=== PATIENT | female | born 1950 | race Caucasian/White ===

== ENCOUNTER 2020-05-21 16:16 | Inpatient (IN) ==
--- NOTE | 2020-05-21 16:31 | Emergency Department Note ---
Fall HPI General Chief Complaint: Fall Stated Complaint: tripped in yard Time Seen by Provider: 05/21/20 16:26 Source: patient and RN notes reviewed Mode of arrival: wheelchair Limitations: no limitations History of Present Illness HPI Narrative: Narrative: This patient tripped and fell in yard and injured her right shoulder and left lateral foot. Happened a short while ago and denies any other injuries. Related Data Home Medications Medication Instructions Recorded Confirmed albuterol sulfate 2 puff INH Q6HP PRN 07/19/19 04/08/20 allopurinol 300 mg PO DAILY 07/19/19 04/08/20 calcium carbonate-vitamin D3 1 tab PO DAILY 07/19/19 04/08/20 cholecalciferol (vitamin D3) 5,000 unit PO DAILY 07/19/19 04/08/20 coenzyme Q10 300 mg PO DAILY 07/19/19 04/08/20 cyanocobalamin (vitamin B-12) 2,500 mcg PO DAILY 07/19/19 04/08/20 fluticasone propion-salmeterol 1 inh INHALATION BID 07/19/19 04/08/20 gabapentin 300 mg PO TID 07/19/19 04/08/20 magnesium oxide 400 mg PO DAILY@1800 07/19/19 04/08/20 metoprolol succinate 100 mg PO HS 07/19/19 04/08/20 niacin 500 mg PO DAILY@1800 07/19/19 04/08/20 onabotulinumtoxinA 300 unit IJ ONCE 07/19/19 04/08/20 potassium 99 mg PO DAILY@1800 07/19/19 04/08/20 xylitol 550 - 1,100 mg MM HS 07/19/19 04/08/20 nortriptyline 10 mg capsule 30 mg PO QHS cap 04/08/20 04/08/20 Previous Rx's Medication Instructions Recorded omeprazole 20 mg capsule,delayed 20 mg PO BID #180 cap 03/20/17 release simvastatin 40 mg tablet 40 mg PO QPM #90 tab 08/02/17 tiotropium bromide 18 mcg capsule 18 mcg INHALATION QDAY #90 puff 08/02/17 with inhalation device celecoxib 200 mg capsule 200 mg PO QDAY #90 cap 01/09/18 fenofibrate 160 mg tablet 160 mg PO QDAY #90 tab 01/09/18 docusate sodium 100 mg PO BID #60 cap 07/29/19 Allergies Allergy/AdvReac Type Severity Reaction Status Date / Time clarithromycin [From Biaxin] Allergy Severe Swelling Verified 02/28/20 11:32 of Lip/Tongue/Throat Penicillins Allergy Severe Swelling Verified 02/28/20 11:32 of Lip/Tongue/Throat Diclofenac Allergy Mild Swelling Verified 02/28/20 11:32 Cephalosporins AdvReac Mild Unknown Verified 02/28/20 11:32 codeine AdvReac Mild Chest Pain Verified 02/28/20 11:32 iodine AdvReac Mild Bradycardia Verified 02/28/20 11:32 topiramate AdvReac Mild Swelling Verified 02/28/20 11:32 tramadol AdvReac Mild Hallucinati Verified 02/28/20 11:32 ng hydrochlorothiazide AdvReac Unknown Unknown Verified 02/28/20 11:32 nitrofurantoin AdvReac Unknown Unknown Verified 02/28/20 11:32 [From Macrobid] prednisolone AdvReac Unknown Unknown Verified 02/28/20 11:32 Sulfa (Sulfonamide AdvReac Unknown Unknown Verified 02/28/20 11:32 Antibiotics) Review of Systems ROS ROS Narrative: Narrative: All systems ED: reviewed and negative except as stated. PFSH Narrative Patient History Narrative: Narrative: Medical/Surgical/Family History All Active Problems (Updated 05/21/20 @ 19:57 by Heron Wade MD) Anterior dislocation of right shoulder (Acute) Fracture of base of fifth metatarsal bone of left foot (Acute) Congestive heart failure (Acute) Acute exacerbation of chronic obstructive pulmonary disease (Acute) Diarrhea (Acute) Personal history of malignant melanoma of skin (Chronic) High cholesterol (Chronic) Other spondylosis with radiculopathy, lumbar region (Chronic) Degenerative disc disease, lumbar (Chronic) Facet arthropathy (Chronic) Radiculopathy, lumbosacral region (Chronic) Spondylosis without myelopathy or radiculopathy, lumbar region (Chronic) Spondylosis without myelopathy or radiculopathy, lumbosacral region (Chronic) Trochanteric bursitis, left hip (Chronic) Pyelonephritis (Acute) Migraine (Chronic) Strain of right little finger (Acute) Osteoarthritis (Chronic) Tendinitis (Acute) Lumbar disc disease with radiculopathy (Chronic) Hx of hysterectomy (Chronic) Urinary tract infection (Chronic 06/12/13) Renal calculi (Chronic 06/12/13) Microscopic hematuria (Chronic 06/12/13) Hypertension, essential (Chronic) Hyperlipidemia (Chronic) Fibromyalgia (Chronic) Fibrocystic disease of breast (Chronic) Hx of colonic polyps (Chronic) Asthma (Chronic) Medical History (Updated 05/21/20 @ 19:57 by Heron Wade MD) Asthma (Chronic) Degenerative disc disease, lumbar (Chronic) Diarrhea (Acute) Facet arthropathy (Chronic) Fibrocystic disease of breast (Chronic) Fibromyalgia (Chronic) High cholesterol (Chronic) Hx of colonic polyps (Chronic) 2004 hyperplastic Hyperlipidemia (Chronic) Hypertension, essential (Chronic) Microscopic hematuria (Chronic 06/12/13) Other spondylosis with radiculopathy, lumbar region (Chronic) Personal history of malignant melanoma of skin (Chronic) Radiculopathy, lumbosacral region (Chronic) Renal calculi (Chronic 06/12/13) Spondylosis without myelopathy or radiculopathy, lumbar region (Chronic) Spondylosis without myelopathy or radiculopathy, lumbosacral region (Chronic) Trochanteric bursitis, left hip (Chronic) Urinary tract infection (Chronic 06/12/13) Surgical History (Updated 02/04/20 @ 10:02 by Patricia Andersen) History of surgery (Acute) LESI #2 Lt. L5-S1 w/o sed 12/13/201910/08 LESI #1 L5-S1 w/o sed 10/02/1904/09 RFTC Repeat Bilat L3-S1 w/sed 04/04/1902/07 LESI #2 L5-S1 w/o sed 02/05/201901/07 LESI #1 L5-S1 w/o sed 01/09/1909/07 LESI #2 L5-S1 w/o sed 08/29/1805/08 Trochanteric Bursa Injection, Lt w/o sed 05/01/1805/08 LESI #1 Lt L5-S1 w/o sed 05/01/1810/06 RFTC Repeat Bilat L3-S1 w/sed 09/21/1708/05 RFTC Bilat L3-S1 w/sed 08/16/201608/05 MBB #2 Bilat L3-S1 w/o sed 08/08/201608/05 MBB #1 L3-S1 w/o sed 07/28/201604/06 LESI #2 L5-S1 w/o sed 04/06/201603/06 LESI #1 L5-S1 w/o sed 03/01/2016 Hx of cholecystectomy (Resolved) Hx of foot surgery (Resolved) right Hx of hysterectomy (Chronic) Hx of knee surgery (Resolved) 1980s lateral left release meniscal repair Hx of tonsillectomy (Resolved) Status post surgery (Resolved) Family History (Updated 08/17/17 @ 11:19 by Rivas Abdullahi MD) none listed Cardiac disease mother Disease of skeletal system spinal stenosis Stroke, Onset Age: 88 Glaucoma Essential hypertension Social History Smoking Status: Former smoker Alcohol Intake Frequency: does not drink Substance Use: does not use Exam Narrative Narrative: Narrative: General Limitations: no limitations Head Head: Present atraumatic, normocephalic and normal inspection Eye Eye: Present normal appearance and EOMI; Absent scleral icterus and conjunctival injection ENT ENT: Present normal exam, normal oropharynx and mucous membranes moist Neck Neck: Present normal inspection and full ROM Chest Chest: Present normal inspection and symmetric chest wall rise Respiratory Respiratory: Present normal lung sounds bilaterally Cardiovascular Cardiovascular: Present regular rate, normal rhythm and normal heart sounds Adbominal Abdominal: Present soft; Absent distention and tenderness Extremities Extremities: Present other (Tenderness about the right shoulder and left lateral foot. No abrasions or lacerations and good pulses in the foot.) Neurological Neurological: Present alert Psychiatric Psychiatric: Present normal affect Skin Skin: Present warm (WNL) and dry; Absent diaphoresis Course Vital Signs Vital signs: Vital Signs Temperature 97.9 F 05/21/20 16:18 Pulse Rate 87 05/21/20 16:18 Respiratory Rate 16 05/21/20 16:18 Blood Pressure 171/94 05/21/20 16:18 Pulse Oximetry (%) 96 05/21/20 16:18 Temperature 97.9 F 05/21/20 16:18 Pulse Rate 88 05/21/20 19:21 Respiratory Rate 18 05/21/20 19:21 Blood Pressure 166/81 05/21/20 19:21 Pulse Oximetry (%) 90 05/21/20 19:21 MDM MDM Narrative Medical decision making narrative: Narrative: We were getting ready to do conscious sedation on this patient and we hooked her up to the monitor her O2 saturation was 84% on room air. She also is starting to feel little short of breath after getting 500 cc of lactated Ringer's. Also starting to wheeze some. She does use an inhaler of albuterol but has never been diagnosed with heart failure. Her chest x-ray and BNP are consistent with heart failure. I discussed the case with Dr. Turcios the orthopedist and Dr. Miner the hospitalist and she will be admitted to the hospital by Dr. Miner with a delayed reduction of her shoulder until she is stable Lab Data Lab results reviewed: Yes I reviewed the patient's lab results. Lab results narrative: BNP was 2900 Result diagrams: 05/21/20 18:40 05/21/20 18:40 Labs: Lab Results 05/21/20 05/21/20 05/21/20 Range/Units 18:40 18:40 18:40 WBC 9.8 (4.5-11.0) K/mcL RBC 4.52 (4.00-5.20) M/mcL Hgb 14.0 (12.0-15.0) g/dL Hct 43.6 (36.0-48.0) % MCV 96.5 (80.0-100.0) fL MCH 31.0 (26.0-34.0) pg MCHC 32.1 (31.0-36.0) g/dL RDW 14.2 (11.5-14.5) % Plt Count 315 (140-440) K/mcL MPV 10.0 (7.4-10.4) fL Neut % (Auto) 65.8 (38.0-78.0) % Lymph % (Auto) 25.8 (15.0-49.0) % [place] % (Auto) 6.9 (1.0-12.0) % Eos % (Auto) 0.5 (0.0-7.0) % Baso % (Auto) 1.0 (0.0-2.0) % Lymph # (Auto) 2.54 (1.50-4.80) K/mcL [place] # (Auto) 0.68 (0.10-0.90) K/mcL Eos # (Auto) 0.05 (0.00-0.70) K/mcL Baso # (Auto) 0.10 (0.00-0.20) K/mcL Absolute Neutrophils 6.47 (1.80-8.00) K/mcL Sodium 139 (133-145) mmol/L Potassium 4.0 (3.3-5.1) mmol/L Chloride 105 (96-108) mmol/L Carbon Dioxide 23 (22-30) mmol/L Anion Gap 11.0 (8.0-16.0) BUN 24 H (8-23) mg/dL Creatinine 1.0 (0.6-1.1) mg/dL GFR Calculation 57 Glucose 133 H (70-105) mg/dL Calcium 9.3 (8.6-10.4) mg/dL Total Bilirubin 0.2 (0.1-1.0) mg/dL AST 24 (<32) U/L ALT 18 (<40) U/L Alkaline Phosphatase 66 (39-117) U/L Troponin T < 0.01 (<0.03) ng/mL NT-Pro-B Natriuret Pep 2804.0 H (<125.0) pg/mL Total Protein 6.9 (5.9-8.4) gm/dL Albumin 4.1 (3.2-5.2) gm/dL Globulin 2.8 (2.2-3.7) gm/dL Albumin/Globulin Ratio 1.5 (1.0-2.3) Radiology Data Radiology results reviewed: Yes I reviewed the patient's radiology results. Radiology results narrative: Shoulder x-ray shows a right anterior dislocation without fracture an x-ray of the left foot shows a [place] fracture of the left base of the fifth metatarsal. Chest x-ray looks like congestive heart failure Discharge Plan Patient/Caregiver Discharge Instructions Pt seen by STUDIO OPERATIONS MANAGER/PA only: No Clinical Impression: Anterior dislocation of right shoulder, Fracture of base of fifth metatarsal bone of left foot, Congestive heart failure, Acute exacerbation of chronic obstructive pulmonary disease Patient Disposition: Xfer As Inpt ([facility]) Follow up with: Rivas Abdullahi MD [Primary Care Provider] - Prescriptions: No Action omeprazole 20 mg capsule,delayed release(DR/EC) 20 mg PO BID Qty: 180 RF: 3 simvastatin 40 mg tablet 40 mg PO QPM Qty: 90 RF: 3 tiotropium bromide 18 mcg capsule, w/inhalation device 18 mcg INHALATION QDAY Qty: 90 RF: 3 celecoxib 200 mg capsule 200 mg PO QDAY Qty: 90 RF: 3 fenofibrate 160 mg tablet 160 mg PO QDAY Qty: 90 RF: 3 albuterol sulfate 1 PUFF inhaler 2 puff INH Q6HP PRN (Reason: Shortness Of Breath) RF: 0 onabotulinumtoxinA 200 UNIT recon soln 300 unit IJ ONCE RF: 0 fluticasone propion-salmeterol 1 PUFF inhaler 1 inh INHALATION BID RF: 0 metoprolol succinate 100 MG tablet extended release 24 hr 100 mg PO HS RF: 0 gabapentin 300 MG capsule 300 mg PO TID RF: 0 allopurinol 300 MG tablet 300 mg PO DAILY RF: 0 potassium 99 MG tablet 99 mg PO DAILY@1800 RF: 0 cyanocobalamin (vitamin B-12) 500 MCG tablet 2,500 mcg PO DAILY RF: 0 niacin 500 MG capsule, extended release 500 mg PO DAILY@1800 RF: 0 cholecalciferol (vitamin D3) 125 MCG capsule 5,000 unit PO DAILY RF: 0 coenzyme Q10 100 MG capsule 300 mg PO DAILY RF: 0 calcium carbonate-vitamin D3 1 EACH tablet 1 tab PO DAILY RF: 0 magnesium oxide 400 MG tablet 400 mg PO DAILY@1800 RF: 0 xylitol 550 MG muco-adhesive buccal tablet 550 - 1,100 mg MM HS RF: 0 docusate sodium 100 MG capsule 100 mg PO BID Qty: 60 RF: 0 nortriptyline 10 mg capsule 30 mg PO QHS RF: 0
[2020-05-21] MEDS ORDERED: LACTATED RINGERS 1,000 ML IV ONE (17:00)
[2020-05-21] MEDS ORDERED: PROPOFOL 200 MG/20 ML VIAL IV ONE (17:28)
[2020-05-21] MEDS ORDERED: ONDANSETRON 4 MG/2 ML VIAL IV ONE (17:29)
[2020-05-21] MEDS ORDERED: IPRATROPIUM/ALBUTEROL 3 ML AMPUL.NEB NEB ONE (18:21)
[2020-05-21 19:14] LABS: Eosinophils # (Auto) 0.05 K/mcL (0.00-0.70); Eosinophils % (Auto) 0.5 % (0.0-7.0); Hematocrit 43.6 % (36.0-48.0); Lymphocytes # (Auto) 2.54 K/mcL (1.50-4.80); Lymphocytes % (Auto) 25.8 % (15.0-49.0); Mean Cell Volume 96.5 fL (80.0-100.0); Mean Corpuscular HGB Conc 32.1 g/dL (31.0-36.0); Monocytes # (Auto) 0.68 K/mcL (0.10-0.90); Monocytes % (Auto) 6.9 % (1.0-12.0); Neutrophils % (Auto) 65.8 % (38.0-78.0); Platelet Count 315 K/mcL (140-440); RBC 4.52 M/mcL (4.00-5.20); Red Cell Distribution Width 14.2 % (11.5-14.5); WBC 9.8 K/mcL (4.5-11.0)
[2020-05-21 19:36] LABS: ALT/SGPT 18 U/L (<40); AST/SGOT 24 U/L (<32); Albumin 4.1 gm/dL (3.2-5.2); Albumin/Globulin Ratio 1.5 (1.0-2.3); Alkaline Phosphatase 66 U/L (39-117); Bilirubin,Total 0.2 mg/dL (0.1-1.0); Blood Urea Nitrogen 24 mg/dL (8-23); Calcium 9.3 mg/dL (8.6-10.4); Carbon Dioxide 23 mmol/L (22-30); Chloride 105 mmol/L (96-108); Globulin 2.8 gm/dL (2.2-3.7); Glomerular Filtration Rate 57; Glucose 133 mg/dL (70-105)
[2020-05-21] MEDS ORDERED: FUROSEMIDE 20 MG/2 ML VIAL IV ONE (19:52)
--- NOTE | 2020-05-21 19:58 | Internal Med History&Physical ---
HPI History of Present Illness Patient information: Note initiated : 05/21/20 at 7:55 pm Service Date, if different from initiated Date: [] Patient: Genevieve Amador a 69 y/o F admitted on for tripped in yard. Chief Complaint: [] History of present illness: Ms. Amador is a 69 year old F with a history of anxiety disorder/hypertension/neuropathy and gout who presents to the ER after she tripped on the gutter drain in the yard injuring on her left foot and shoulder. Patient denies losing consciousness and attributes fall to tripping. Initial work-up the ER was consistent with right shoulder dislocation. During attempt to reduce dislocated shoulder patient was found to be hypoxic requiring 4 L oxygen. Subsequently chest imaging revealed bilateral infiltrates. Patient was found wheezing and profound dyspnea. Procedure was aborted and orthopedic was consulted. Recommended conservative management until patient clinically stable. Subsequently hospitalist service was consulted. BNP 2804. Patient received 1 dose of Lasix in ER along with bronchodilators for possible CHF exacerbation and COPD flare At the time of my evaluation patient is alert and oriented. She is able to talk in near full sentences. She sounds wheezy. She denies prior hospitalization for CHF or COPD. She does carry history of COPD not oxygen dependent. She quit smoking 20 years ago. She has not had a flare in over a year. She denies recent sick contacts or exposure to individuals with Covid symptoms. She denies upper respiratory symptoms or cough or headache, myalgia, fever, diarrhea, dysuria or loss of taste or smell Review of systems 10 point review system was performed and is negative except for ones discussed above PFSH PFSH All Active Problems (Updated 05/21/20 @ 19:57 by Heron Wade MD) Anterior dislocation of right shoulder (Acute) Fracture of base of fifth metatarsal bone of left foot (Acute) Congestive heart failure (Acute) Acute exacerbation of chronic obstructive pulmonary disease (Acute) Diarrhea (Acute) Personal history of malignant melanoma of skin (Chronic) High cholesterol (Chronic) Other spondylosis with radiculopathy, lumbar region (Chronic) Degenerative disc disease, lumbar (Chronic) Facet arthropathy (Chronic) Radiculopathy, lumbosacral region (Chronic) Spondylosis without myelopathy or radiculopathy, lumbar region (Chronic) Spondylosis without myelopathy or radiculopathy, lumbosacral region (Chronic) Trochanteric bursitis, left hip (Chronic) Pyelonephritis (Acute) Migraine (Chronic) Strain of right little finger (Acute) Osteoarthritis (Chronic) Tendinitis (Acute) Lumbar disc disease with radiculopathy (Chronic) Hx of hysterectomy (Chronic) Urinary tract infection (Chronic 06/12/13) Renal calculi (Chronic 06/12/13) Microscopic hematuria (Chronic 06/12/13) Hypertension, essential (Chronic) Hyperlipidemia (Chronic) Fibromyalgia (Chronic) Fibrocystic disease of breast (Chronic) Hx of colonic polyps (Chronic) Asthma (Chronic) Medical History (Updated 05/21/20 @ 19:57 by Heron Wade MD) Asthma (Chronic) Degenerative disc disease, lumbar (Chronic) Diarrhea (Acute) Facet arthropathy (Chronic) Fibrocystic disease of breast (Chronic) Fibromyalgia (Chronic) High cholesterol (Chronic) Hx of colonic polyps (Chronic) 2004 hyperplastic Hyperlipidemia (Chronic) Hypertension, essential (Chronic) Microscopic hematuria (Chronic 06/12/13) Other spondylosis with radiculopathy, lumbar region (Chronic) Personal history of malignant melanoma of skin (Chronic) Radiculopathy, lumbosacral region (Chronic) Renal calculi (Chronic 06/12/13) Spondylosis without myelopathy or radiculopathy, lumbar region (Chronic) Spondylosis without myelopathy or radiculopathy, lumbosacral region (Chronic) Trochanteric bursitis, left hip (Chronic) Urinary tract infection (Chronic 06/12/13) Surgical History (Updated 02/04/20 @ 10:02 by Patricia Andersen) History of surgery (Acute) LESI #2 Lt. L5-S1 w/o sed 12/13/201910/08 LESI #1 L5-S1 w/o sed 10/02/1904/09 RFTC Repeat Bilat L3-S1 w/sed 04/04/1902/07 LESI #2 L5-S1 w/o sed 02/05/201901/07 LESI #1 L5-S1 w/o sed 01/09/1909/07 LESI #2 L5-S1 w/o sed 08/29/1805/08 Trochanteric Bursa Injection, Lt w/o sed 05/01/1805/08 LESI #1 Lt L5-S1 w/o sed 05/01/1810/06 RFTC Repeat Bilat L3-S1 w/sed 09/21/1708/05 RFTC Bilat L3-S1 w/sed 08/16/201608/05 MBB #2 Bilat L3-S1 w/o sed 08/08/201608/05 MBB #1 L3-S1 w/o sed 07/28/201604/06 LESI #2 L5-S1 w/o sed 04/06/201603/06 LESI #1 L5-S1 w/o sed 03/01/2016 Hx of cholecystectomy (Resolved) Hx of foot surgery (Resolved) right Hx of hysterectomy (Chronic) Hx of knee surgery (Resolved) 1980s lateral left release meniscal repair Hx of tonsillectomy (Resolved) Status post surgery (Resolved) Family History (Updated 08/17/17 @ 11:19 by Rivas Abdullahi MD) none listed Cardiac disease mother Disease of skeletal system spinal stenosis Stroke, Onset Age: 88 Glaucoma Essential hypertension Social History marital status: smoking status: Former smoker alcohol intake frequency: does not drink substance use type: does not use MEDS/ALLERGIES Home Medications and Allergies Home Medications Medication Instructions Recorded Confirmed Type omeprazole 20 mg capsule,delayed 20 mg PO BID #180 cap 03/20/17 05/22/20 Rx release tiotropium bromide 18 mcg capsule 18 mcg INHALATION QDAY #90 puff 08/02/17 05/22/20 Rx with inhalation device fenofibrate 160 mg tablet 160 mg PO QDAY #90 tab 01/09/18 05/22/20 Rx albuterol sulfate 2 puff INH Q6HP PRN 07/19/19 05/22/20 History allopurinol 300 mg PO DAILY 07/19/19 05/22/20 History calcium carbonate-vitamin D3 1 tab PO DAILY@1800 07/19/19 05/22/20 History cholecalciferol (vitamin D3) 5,000 unit PO DAILY@1800 07/19/19 05/22/20 History coenzyme Q10 300 mg PO DAILY 07/19/19 05/22/20 History cyanocobalamin (vitamin B-12) 2,500 mcg PO DAILY@1800 07/19/19 05/22/20 History gabapentin 300 mg PO QID 07/19/19 05/22/20 History magnesium oxide 400 mg PO DAILY@1800 07/19/19 05/22/20 History metoprolol succinate 100 mg PO HS 07/19/19 05/22/20 History potassium 99 mg PO DAILY@1800 07/19/19 05/22/20 History nortriptyline 10 mg capsule 30 mg PO QHS cap 04/08/20 05/22/20 History fluticasone propion-salmeterol 2 inh INHALATION BID 05/21/20 05/22/20 History [Advair Diskus] rizatriptan 10 mg PO ONCE PRN 05/21/20 05/22/20 History tramadol 50 mg PO BIDP PRN 05/22/20 05/22/20 History Allergies Allergy/AdvReac Type Severity Reaction Status Date / Time clarithromycin [From Biaxin] Allergy Severe Swelling Verified 02/28/20 11:32 of Lip/Tongue/Throat hydrochlorothiazide Allergy Severe Heart Verified 05/22/20 04:07 races, tongue swells Penicillins Allergy Severe Swelling Verified 02/28/20 11:32 of Lip/Tongue/Throat prednisolone Allergy Severe Swelling Verified 05/22/20 07:39 of Lip/Tongue/Throat Diclofenac Allergy Mild Swelling Verified 02/28/20 11:32 Sulfa (Sulfonamide Allergy Unknown Hives Verified 05/22/20 04:08 Antibiotics) Cephalosporins AdvReac Mild Unknown Verified 02/28/20 11:32 codeine AdvReac Mild Chest Pain Verified 02/28/20 11:32 iodine AdvReac Mild Bradycardia Verified 02/28/20 11:32 topiramate AdvReac Mild Swelling Verified 02/28/20 11:32 tramadol AdvReac Mild Hallucinati Verified 02/28/20 11:32 ng nitrofurantoin AdvReac Unknown Unknown Verified 02/28/20 11:32 [From Macrobid] EXAM Constitutional Vitals: Temp Pulse Resp BP Pulse Ox 97.9 F 88 18 166/81 90 05/21/20 16:18 05/21/20 19:21 05/21/20 19:21 05/21/20 19:21 05/21/20 19:21 Anxious and in moderate discomfort Head normocephalic Oral cavity moist No ear nose discharge Eye movement symmetrical Neck supple no lymphadenopathy S1-S2 bundle branch block regular on conveyor monitor Labored breathing on 4 L oxygen Nondistended nontender abdomen Lymphedema noted, left foot swelling, tenderness, right shoulder deformity Skin no suspicious lesion Psych anxious but no hallucination Neuro normal higher function, GCS 14 DATA Data Completed and Pending Labs: Labs from last 24 hours 05/21/20 05/21/20 05/21/20 18:40 18:40 18:40 WBC 9.8 RBC 4.52 Hgb 14.0 Hct 43.6 MCV 96.5 MCH 31.0 MCHC 32.1 RDW 14.2 Plt Count 315 MPV 10.0 Neut % (Auto) 65.8 Lymph % (Auto) 25.8 [place] % (Auto) 6.9 Eos % (Auto) 0.5 Baso % (Auto) 1.0 Lymph # (Auto) 2.54 [place] # (Auto) 0.68 Eos # (Auto) 0.05 Baso # (Auto) 0.10 Absolute Neutrophils 6.47 Sodium 139 Potassium 4.0 Chloride 105 Carbon Dioxide 23 Anion Gap 11.0 BUN 24 H Creatinine 1.0 GFR Calculation 57 Glucose 133 H Calcium 9.3 Total Bilirubin 0.2 AST 24 ALT 18 Alkaline Phosphatase 66 Troponin T < 0.01 NT-Pro-B Natriuret Pep 2804.0 H Total Protein 6.9 Albumin 4.1 Globulin 2.8 Albumin/Globulin Ratio 1.5 A/P Narrative A/P Narrative: * ADHF, no prior history. Check echocardiogram. Start diuresis. Serial imaging. Optimize management based on echo finding. * Acute respiratory failure with hypoxia requiring 4 L oxygen, ABG, initiate noninvasive ventilation, serial Imaging * Acute exacerbation of COPD- start bronchodilators, steroids and supplemental oxygen. * Right shoulder dislocation/left foot fracture - Ortho consuted, Pain management, await further recommendations from orthopedics * HTN-continue home medications including metoprolol * GERD continue PPI * HLD continue statin * Neuropathy continue gabapentin/nortriptyline * H/o Gout continue allopurinol * Full code * Prophylaxis Heparin PLAN * PCU admit * NIV/ABG/O2/Diuretics * Steroids * COVID 19 testing * Pain management * Pre-existing medical condition management as above home medications * PT OT nutrition support * Await orthopedic recommendations Time Spent With Patient Time: Total time spent is greater than 50% in coordination of care (as documented) at patient's floor/unit and/or counseling patient:
[2020-05-21] MEDS ORDERED: POTASSIUM CHLORIDE 40 MEQ in DEXTROSE 5% IN WATER 500 ML IV PRN (22:37)
[2020-05-21] MEDS ORDERED: METOPROLOL TARTRATE 5 MG/5 ML VIAL IV PRN (22:37)
[2020-05-21] MEDS ORDERED: ACETAMINOPHEN 325 MG TABLET PO PRN (22:37)
[2020-05-21] MEDS ORDERED: ONDANSETRON 4 MG ODT TABLET SL PRN (22:37)
[2020-05-21] MEDS ORDERED: MELATONIN 3 MG TABLET PO PRN (22:37)
[2020-05-21] MEDS ORDERED: ACETAMINOPHEN 650 MG/65 ML BAG IV PRN (22:37)
[2020-05-21] MEDS ORDERED: POLYETHYLENE GLYCOL 3350 17 GM PACKET PO PRN (22:37)
[2020-05-21] MEDS ORDERED: ONDANSETRON 4 MG/2 ML VIAL IV PRN (22:37)
[2020-05-21] MEDS ORDERED: IPRATROPIUM/ALBUTEROL 3 ML AMPUL.NEB NEB PRN (22:37)
[2020-05-21] MEDS ORDERED: POTASSIUM CHLORIDE 20 MEQ PACKET PO PRN (22:37)
[2020-05-21] MEDS ORDERED: MAGNESIUM SULFATE 2 GM/50 ML BAG IV PRN (22:37)
[2020-05-21] MEDS ORDERED: hydrALAZINE 20 MG/ML VIAL IV PRN (22:37)
[2020-05-21] MEDS ORDERED: BISACODYL 10 MG SUPP.RECT PR PRN (22:37)
[2020-05-21] MEDS ORDERED: hydrALAZINE 20 MG/ML VIAL ONE (23:06)
[2020-05-21] MEDS ORDERED: HEPARIN 5,000 UNIT/ML VIAL ONE (23:07)
[2020-05-21] MEDS ORDERED: HYDROmorphone 0.5 MG/0.5 ML SYRINGE ONE (23:07)
[2020-05-21] MEDS ORDERED: methylPREDNISolone SOD SUCC 125 MG/2 ML VIAL ONE (23:10)
[2020-05-21] MEDS: DOCUSATE SODIUM 100 MG CAPSULE PO SCH (23:22)
[2020-05-21] MEDS: HEPARIN 5,000 UNIT/ML VIAL SQ SCH (23:23)
[2020-05-21] MEDS: SENNOSIDES/DOCUSATE SODIUM 1 TAB TABLET PO SCH (23:23)
[2020-05-21] MEDS: 0.9 % SODIUM CHLORIDE 10 ML SYRINGE IV SCH (23:24)
[2020-05-21] MEDS ORDERED: BUDESONIDE 0.5 MG/2 ML AMPUL.NEB ONE (23:44)
[2020-05-22] MEDS: methylPREDNISolone SOD SUCC 125 MG/2 ML VIAL IV SCH ×2 (00:37→06:43)
[2020-05-22] MEDS: BUDESONIDE 0.5 MG/2 ML AMPUL.NEB NEB SCH ×3 (00:38→23:20)
[2020-05-22] MEDS ORDERED: HYDROmorphone 0.5 MG/0.5 ML SYRINGE ONE ×2 (01:27→05:01)
[2020-05-22] MEDS: 0.9 % SODIUM CHLORIDE 10 ML SYRINGE IV SCH ×3 (04:58→22:00)
[2020-05-22] MEDS ORDERED: methylPREDNISolone SOD SUCC 125 MG/2 ML VIAL ONE (06:30)
[2020-05-22 06:54] LABS: Basophils % (Auto) 0.8 % (0.0-2.0); Eosinophils # (Auto) 0.01 K/mcL (0.00-0.70); Eosinophils % (Auto) 0.1 % (0.0-7.0); Hematocrit 42.1 % (36.0-48.0); Hemoglobin 13.3 g/dL (12.0-15.0); Lymphocytes # (Auto) 2.54 K/mcL (1.50-4.80); Lymphocytes % (Auto) 20.6 % (15.0-49.0); Mean Cell Volume 96.3 fL (80.0-100.0); Mean Corpuscular HGB Conc 31.6 g/dL (31.0-36.0); Mean Platelet Volume 10.6 fL (7.4-10.4); Monocytes # (Auto) 0.76 K/mcL (0.10-0.90); Monocytes % (Auto) 6.2 % (1.0-12.0); Neutrophils % (Auto) 72.3 % (38.0-78.0); Platelet Count 309 K/mcL (140-440); RBC 4.37 M/mcL (4.00-5.20); Red Cell Distribution Width 14.1 % (11.5-14.5); WBC 12.3 K/mcL (4.5-11.0)
[2020-05-22 07:50] LABS: ALT/SGPT 15 U/L (<40); AST/SGOT 26 U/L (<32); Albumin 3.8 gm/dL (3.2-5.2); Albumin/Globulin Ratio 1.4 (1.0-2.3); Alkaline Phosphatase 53 U/L (39-117); Bilirubin,Direct < 0.2 mg/dL (<0.3); Bilirubin,Total 0.3 mg/dL (0.1-1.0); Blood Urea Nitrogen 21 mg/dL (8-23); Calcium 8.8 mg/dL (8.6-10.4); Carbon Dioxide 21 mmol/L (22-30); Chloride 103 mmol/L (96-108); Globulin 2.8 gm/dL (2.2-3.7); Glomerular Filtration Rate 65; Glucose 110 mg/dL (70-105); Lactate Dehydrogenase 274 U/L (135-225); Phosphorous 2.9 mg/dL (2.5-4.5); Triglycerides 127 mg/dL (<150); Uric Acid 3.4 mg/dL (2.5-8.0)
[2020-05-22] MEDS ORDERED: BUDESONIDE 0.5 MG/2 ML AMPUL.NEB ONE (07:56)
--- NOTE | 2020-05-22 08:21 | XRay Report ---
HISTORY: Left foot pain after a fall FINDINGS: There is an acute transverse fracture at the base of the fifth metatarsal. There is minimal separation and no angulation. Overlying soft tissues are swollen. No other fracture or dislocation are present. A medium-size spur is present on the plantar surface of the calcaneus. There is subtle joint space narrowing at the first metatarsal phalangeal joint. IMPRESSION: Fractured base of the fifth metatarsal Interpreted and Authenticated by: Hudson Brown 05/22/20
--- NOTE | 2020-05-22 08:49 | XRay Report ---
HISTORY: Fell and injured right shoulder FINDINGS: The humeral head is dislocated anteriorly. No fracture is identified. AC joint is normal. Visualized right-sided ribs are normal. Moderate arthritis is present in the facets in the lower cervical spine. IMPRESSION: Dislocated right shoulder Interpreted and Authenticated by: Hudson Brown 05/22/20
--- NOTE | 2020-05-22 08:52 | XRay Report ---
HISTORY: Short of breath and wheezing FINDINGS: Severe diffuse alveolar opacities are present throughout both lungs. Lung volumes are normal. The heart is mildly enlarged. No pleural effusion is present. Aorta is mildly tortuous. The mediastinum is otherwise normal. The right humeral head is dislocated anteriorly and medially. IMPRESSION: Widespread alveolar opacities in both lungs. This could be due to pulmonary edema or severe widespread pneumonia Dislocated right shoulder Interpreted and Authenticated by: Hudson Brown 05/22/20
[2020-05-22] MEDS: HEPARIN 5,000 UNIT/ML VIAL SQ SCH ×2 (09:02→21:01)
[2020-05-22] MEDS: FUROSEMIDE 40 MG/4 ML VIAL IV SCH ×2 (09:02→17:48)
[2020-05-22] MEDS: HYDROmorphone 0.5 MG/0.5 ML SYRINGE IV PRN ×2 (09:07→13:35)
[2020-05-22] MEDS: DOCUSATE SODIUM 100 MG CAPSULE PO SCH ×2 (09:08→21:03)
[2020-05-22] MEDS: MULTIVIT,THER IRON,CA,FA & MIN 1 TABLET PO SCH (09:08)
[2020-05-22] MEDS ORDERED: RIZATRIPTAN 10 MG TABLET PO PRN (09:51)
[2020-05-22] MEDS ORDERED: ALBUTEROL SULFATE 200 PUFF INHALER INH PRN (09:51)
[2020-05-22] MEDS ORDERED: traMADol 50 MG TABLET PO PRN (09:51)
[2020-05-22] MEDS ORDERED: cefTRIAXone 2 GM in DEXTROSE 5% IN WATER 50 ML IV SCH (10:00)
--- NOTE | 2020-05-22 10:01 | Internal Med Progress Note ---
SUBJECTIVE Subjective Patient information: Note initiated : 05/22/20 at 9:57 am Service Date, if different from initiated Date: [] Patient: Genevieve Amador 69 y/o F admitted on 05/21/20 for tripped in yard. Chief Complaint: Ms. Amador is a 69 year old F with a history of anxiety disorder/hypert ension/neuropathy and gout who presents to the ER after she tripped on the gutter drain in the yard injuring on her left foot and shoulder. Patient denies losing consciousness and attributes fall to tripping. Initial work-up the ER was consistent with right shoulder dislocation. During attempt to reduce dislocated shoulder patient was found to be hypoxic requiring 4 L oxygen. Subsequently chest imaging revealed bilateral infiltrates. Patient was found wheezing and profound dyspnea. Procedure was aborted and orthopedic was consulted. Recommended conservative management until patient clinically stable. Subsequently hospitalist service was consulted. BNP 2804. Patient received 1 dose of Lasix in ER along with bronchodilators for possible CHF exacerbation and COPD flare At the time of my evaluation patient is alert and oriented. She is able to talk in near full sentences. She sounds wheezy. She denies prior hospitalization for CHF or COPD. She does carry history of COPD not oxygen dependent. She quit smoking 20 years ago. She has not had a flare in over a year. She denies recent sick contacts or exposure to individuals with Covid symptoms. She denies upper respiratory symptoms or cough or headache, myalgia, fever, diarrhea, dysuria or loss of taste or smell. Patient admitted to ICU on noninvasive ventilation/aggressive diuresis and IV steroids. 05/22-patient overnight on BiPAP. Doing well. Over 2000 cc urine output. Breathing a lot better. Much improved lymphedema. Right shoulder/left foot fracture dislocation site tender. Overnight on noninvasive ventilation. ABG 7.4 / on 28% FiO2 noninvasive ventilation. Interval chest imaging today. Constitutional Vitals: Vital Signs Temp Pulse Resp BP Pulse Ox 98.3 F 91 H 15 169/88 97 05/22/20 04:00 05/22/20 08:01 05/22/20 08:01 05/22/20 08:01 05/22/20 08:01 Period Temp Pulse Resp BP Sys/[place] Pulse Ox Last 24 Hr 97.5 F-98.3 F 82-96 10-27 103-182/74-119 84-99 Intake and Output 05/21/20 05/22/20 05/22/20 21:59 05:59 13:59 Intake Total 500 250 65 Output Total 1300 700 Balance -800 -450 65 Weight 86.183 kg 88.451 kg Doing well On 6 L oxygen off noninvasive ventilation Able to talk in full sentences Right shoulder deformity dislocation Left color depositing machine tender swollen Minimal anxiety Intake & Output: Intake & Output 05/21/20 05/22/20 05/22/20 21:59 05:59 13:59 Intake Total 500 250 65 Output Total 1300 700 Balance -800 -450 65 Weight 86.183 kg 88.451 kg Intake: IV 500 65 Lactated Ringers 1,000 ml @ 500 Wide Open IV BOLUS ONE Rx#: [id number] Oral 250 Output: Void Amount 1300 700 Other: Urine Appearance Cloudy Urine Color Straw Urine Odor Strong # Bowel Movements 0 OBJ DATA Labs CBC & Chem 7: 05/22/20 04:07 05/22/20 04:07 Labs: Abnormal Lab Results 05/22/20 05/22/20 05/21/20 04:07 04:07 19:30 WBC 12.3 H MPV 10.6 H Absolute Neutrophils 8.90 H Carbon Dioxide 21 L BUN Glucose 110 H Lactate Dehydrogenase 274 H NT-Pro-B Natriuret Pep Procalcitonin 0.10 H 05/21/20 18:40 WBC MPV Absolute Neutrophils Carbon Dioxide BUN 24 H Glucose 133 H Lactate Dehydrogenase NT-Pro-B Natriuret Pep 2804.0 H Procalcitonin Meds: Medications Acetaminophen (Tylenol) 650 mg PO Q4-6HP PRN; Protocol PRN Reason: Per Pain Protocol/Fever > 101 Albuterol Sulfate (Ventolin) 2 puff INH Q6HP PRN PRN Reason: Shortness Of Breath Albuterol/Ipratropium (Duoneb) 3 ml NEB Q4HP PRN PRN Reason: Shortness Of Breath Allopurinol (Zylopriim) 300 mg PO DAILY RAJ Bisacodyl (Dulcolax) 10 mg AK Q2-3DAYS PRN PRN Reason: Constipation Budesonide (Pulmicort) 0.5 mg NEB Q12 RAJ Last Admin: 05/22/20 07:53 Dose: 0.5 mg Documented by: Cyanocobalamin (Vitamin B-12) 2,500 mcg PO DAILY@1800 [facility] Docusate Sodium (Colace) 100 mg PO BID [facility] Last Admin: 05/22/20 09:08 Dose: Not Given Documented by: Furosemide (Lasix) 40 mg IV BIDD [facility] Last Admin: 05/22/20 09:02 Dose: 40 mg Documented by: Gabapentin (Neurontin) 300 mg PO QID [facility] Heparin Sodium (Porcine) (Heparin) 5,000 unit SQ Q12 [facility] Last Admin: 05/22/20 09:02 Dose: 5,000 unit Documented by: Hydralazine HCl (Apresoline) 10 mg IV Q4-6HP PRN PRN Reason: Hypertension Hydromorphone HCl (Dilaudid) 0.25 mg IV Q4HP PRN; Protocol PRN Reason: Per Pain Protocol Last Admin: 05/22/20 09:07 Dose: 0.25 mg Documented by: Potassium Chloride 40 meq/ (Dextrose) 520 mls @ 130 mls/hr IV UD PRN PRN Reason: K+ = or < 3.5 Acetaminophen (Ofirmev) 650 mg in 65 mls @ 130 mls/hr IV Q6HP PRN; Protocol PRN Reason: Per Pain Protocol/Fever > 101 Last Infusion: 05/22/20 08:42 Dose: Infused Documented by: Magnesium Sulfate (Magnesium Sulfate) 2 gm in 50 mls @ 50 mls/hr IV UD PRN PRN Reason: MG = or < 1.7 Ceftriaxone Sodium 2 gm/ (Dextrose) 50 mls @ 100 mls/hr IV Q24H [facility]; Protocol Iron Carb/Multivit/Crester/Folic Acid (Multivitamin W/Minerals) 1 tab PO DAILY [facility] Last Admin: 05/22/20 09:08 Dose: Not Given Documented by: Magnesium Oxide (Magnesium Oxide) 400 mg PO DAILY@1800 [facility] Melatonin (Melatonin 3mg Tablet) 3 mg PO HSP PRN PRN Reason: Insomnia Methylprednisolone Sodium Succinate (Solu-Medrol) 60 mg IV DAILY [facility] Metoprolol Succinate (Toprol) 100 mg PO HS [facility] Metoprolol Tartrate (Lopressor) 5 mg IV Q5M PRN PRN Reason: Heart Rate > 140 bpm Non-Formulary Medication (Fenofibrate) 160 mg PO QDAY [facility] Nortriptyline HCl (Pamelor) 30 mg PO QHS [facility] Omeprazole (Prilosec) 20 mg PO BID RAJ Ondansetron HCl (Zofran Odt) 4 mg SL Q4-6HP PRN; Protocol PRN Reason: Nausea And Vomiting Ondansetron HCl (Zofran) 4 mg IV Q4-6HP PRN; Protocol PRN Reason: Nausea And Vomiting Polyethylene Glycol (Miralax) 17 gm PO DAILYP PRN PRN Reason: Constipation Potassium Chloride (Klor-Con) 40 meq PO DAILYP PRN PRN Reason: K+ < 3.5 Rizatriptan Benzoate (Maxalt-[employer]) 10 mg PO ONCE PRN PRN Reason: Migraine Headache Fluticasone/Salmeterol (Advair 250-50 Diskus) 2 puff INH BID RAJ Senna/Docusate Sodium (Senna Plus Tablet) 1 tab PO HS [facility] Last Admin: 05/21/20 23:23 Dose: Not Given Documented by: Sodium Chloride (Saline Flush) 10 ml IV Q8 [facility] Last Admin: 05/22/20 04:58 Dose: 10 ml Documented by: Tiotropium [place] (Spiriva) 18 mcg INH QDAY ARJ Tramadol HCl (Ultram) 50 mg PO BIDP PRN; Protocol PRN Reason: Pain Vitamin D (Vitamin D3) 5,000 unit PO DAILY@1800 [facility] A/P Narrative A/P Narrative: * ADHF, no prior history. Check echocardiogram. Start diuresis. Serial imaging. Optimize management based on echo finding. * Acute respiratory failure with hypoxia requiring 6 L oxygen, overnight on noninvasive ventilation. ABG PO2 62 on 28% FiO2 BiPAP, clinical improvement noted this morning. * Acute exacerbation of COPD-clinically improving on bronchodilators, steroids and supplemental oxygen. * Right shoulder dislocation/left foot fracture - Ortho consuted, continue pain management, await further recommendations from orthopedics * HTN-continue home medications including metoprolol * GERD continue PPI * HLD continue statin * Neuropathy continue gabapentin/nortriptyline * H/o Gout continue allopurinol * Full code * Prophylaxis Heparin PLAN * Await orthopedic consult * Wean noninvasive ventilation * Continue O2/Diuretics * Lower IV steroids * Pain management * Pre-existing medical condition management as above home medications * PT OT nutrition support * Discharge planning per case management Time Spent With Patient Time: Total time spent is greater than 50% in coordination of care (as documented) at patient's floor/unit and/or counseling patient:
[2020-05-22] MEDS: LEVOFLOXACIN 750 MG/150 ML BAG IV SCH (11:06)
[2020-05-22] MEDS: GABAPENTIN 300 MG CAPSULE PO SCH ×3 (13:30→21:01)
[2020-05-22] MEDS ORDERED: KETAMINE 100 MG/ML ML ONE (14:50)
[2020-05-22] MEDS ORDERED: PROPOFOL 200 MG/20 ML VIAL IV ONE (14:50)
--- NOTE | 2020-05-22 15:14 | Brief Operative Note ---
Brief Operative Note Date of procedure: 05/22/20 Pre-op diagnosis: right shoulder anterior dislocation Post-op diagnosis: same Procedure: right shoulder closed reduction with aneasthesis Grafts/Implants: No Anesthesia: MAC Complications: none Surgeon: Carter Saavedra Estimated blood loss (cc): 0 Tourniquet Time (Minutes): 0 Specimens Removed/Pathology: none sent Condition: stable Disposition: PACU
[2020-05-22] MEDS ORDERED: HYDROcodone/APAP 10/325MG TABLET PO PRN (15:15)
[2020-05-22] MEDS: OMEPRAZOLE 20 MG CAPSULE PO SCH (17:48)
[2020-05-22] MEDS ORDERED: VITAMIN D3 5,000 UNIT CAPSULE PO SCH (18:00)
[2020-05-22] MEDS ORDERED: CYANOCOBALAMIN (VITAMIN B-12) 500 MCG TABLET PO SCH (18:00)
[2020-05-22] MEDS ORDERED: NON FORMULARY MEDICATION 1 DOSE MISCELL (Potassium 99 MG) PO SCH (18:00)
[2020-05-22] MEDS ORDERED: MAGNESIUM OXIDE 400 MG TABLET PO SCH (18:00)
[2020-05-22] MEDS ORDERED: HYDROcodone/APAP 5/325MG TABLET PO PRN (18:46)
[2020-05-22] MEDS ORDERED: METOPROLOL SUCCINATE 50 MG TAB.XL.24H PO SCH (21:00)
[2020-05-22] MEDS ORDERED: NORTRIPTYLINE 10 MG CAPSULE PO SCH (21:00)
[2020-05-22] MEDS: FLUTICASONE/SALMETEROL 250/50 INHALER #14 INH SCH (21:03)
[2020-05-22] MEDS: SENNOSIDES/DOCUSATE SODIUM 1 TAB TABLET PO SCH (21:03)
[2020-05-23] MEDS: 0.9 % SODIUM CHLORIDE 10 ML SYRINGE IV SCH ×3 (05:21→05:25)
[2020-05-23 06:43] LABS: Basophils # (Auto) 0.04 K/mcL (0.00-0.20); Basophils % (Auto) 0.4 % (0.0-2.0); Eosinophils # (Auto) 0.01 K/mcL (0.00-0.70); Eosinophils % (Auto) 0.1 % (0.0-7.0); Hematocrit 44.2 % (36.0-48.0); Hemoglobin 14.2 g/dL (12.0-15.0); Lymphocytes # (Auto) 3.11 K/mcL (1.50-4.80); Lymphocytes % (Auto) 30.1 % (15.0-49.0); Mean Corpuscular HGB Conc 32.1 g/dL (31.0-36.0); Mean Platelet Volume 10.3 fL (7.4-10.4); Monocytes # (Auto) 1.09 K/mcL (0.10-0.90); Monocytes % (Auto) 10.6 % (1.0-12.0); Neutrophils % (Auto) 58.8 % (38.0-78.0); Platelet Count 334 K/mcL (140-440); Red Cell Distribution Width 14.2 % (11.5-14.5); WBC 10.3 K/mcL (4.5-11.0)
[2020-05-23 07:21] LABS: ALT/SGPT 10 U/L (<40); AST/SGOT 19 U/L (<32); Albumin/Globulin Ratio 1.4 (1.0-2.3); Alkaline Phosphatase 52 U/L (39-117); Bilirubin,Direct < 0.2 mg/dL (<0.3); Bilirubin,Total 0.4 mg/dL (0.1-1.0); Blood Urea Nitrogen 20 mg/dL (8-23); Carbon Dioxide 22 mmol/L (22-30); Chloride 97 mmol/L (96-108); Globulin 2.8 gm/dL (2.2-3.7); Glomerular Filtration Rate 75; Glucose 114 mg/dL (70-105); Lactate Dehydrogenase 270 U/L (135-225); Phosphorous 2.4 mg/dL (2.5-4.5); Triglycerides 202 mg/dL (<150); Uric Acid 3.5 mg/dL (2.5-8.0)
[2020-05-23] MEDS: OMEPRAZOLE 20 MG CAPSULE PO SCH (07:41)
[2020-05-23] MEDS: FUROSEMIDE 40 MG/4 ML VIAL IV SCH (07:41)
--- NOTE | 2020-05-23 08:41 | Discharge Summary ---
Discharge Provider Provider Patient information: Note initiated : 05/23/20 at 8:39 am Service Date, if different from initiated Date: [] Patient: Genevieve Amador a 69 y/o F admitted on 05/21/20 for tripped in yard. Discharge diagnosis * Acute decompensated heart failure with flash pulmonary edema likely diastolic (HTN), Await echocardiogram. responded well to aggressive diuresis and blood pressure control. Continue beta-britt and add low-dose ALLISON inhibitor. Interval imaging resolution of pulmonary edema. Discharge and follow-up with PCP. PCP to continue optimizing CHF management based on echo finding. Please cc echo to primary care physician office * Acute respiratory failure with hypoxia requiring 6 L oxygen, overnight on noninvasive ventilation. Rapid improvement noted with aggressive diuresis. Now on room air * Acute exacerbation of COPD-clinically resolved on bronchodilators, steroids and supplemental oxygen. * Right shoulder dislocation/left foot fracture - Ortho consuted, continue pain management, await further recommendations from orthopedics * HTN suboptimally controlled-continue home dose started low-dose ALLISON inhibitor. * GERD continue PPI * HLD continue statin * Neuropathy continue gabapentin/nortriptyline * H/o Gout continue allopurinol Brief hospital course Ms. Amador is a 69 year old F with a history of anxiety disorder/hypertension/neuropathy and gout who presents to the ER after she tripped on the gutter drain in the yard injuring on her left foot and shoulder. Patient denies losing consciousness and attributes fall to tripping. Initial work-up the ER was consistent with right shoulder dislocation. During attempt to reduce dislocated shoulder patient was found to be hypoxic requiring 4 L oxygen. Subsequently chest imaging revealed bilateral infiltrates. Patient was found wheezing and profound dyspnea. Procedure was aborted and orthopedic was consulted. Recommended conservative management until patient clinically stable. Subsequently hospitalist service was consulted. BNP 2804. Patient received 1 dose of Lasix in ER along with bronchodilators for possible CHF exacerbation and COPD flare At the time of my evaluation patient is alert and oriented. She is able to talk in near full sentences. She sounds wheezy. She denies prior hospitalization for CHF or COPD. She does carry history of COPD not oxygen dependent. She quit smoking 20 years ago. She has not had a flare in over a year. She denies recent sick contacts or exposure to individuals with Covid symptoms. She denies upper respiratory symptoms or cough or headache, myalgia, fever, diarrhea, dysuria or loss of taste or smell. Patient admitted to ICU on noninvasive ventilation/aggressive diuresis and IV steroids. 05/22-patient overnight on BiPAP. Doing well. Over 2000 cc urine output. Breathing a lot better. Much improved lymphedema. Right shoulder/left foot fracture dislocation site tender. Overnight on noninvasive ventilation. ABG 7.4 on 28% FiO2 noninvasive ventilation. Interval chest imaging today. 05/23- Patient did well with blood pressure control aggressive diuresis resolution of pulmonary edema on interval chest imaging. Discharging with advised to follow-up with orthopedics. Orthopedics recommended boot for left fifth metatarsal fracture. Status post right shoulder reduction. Schedule home health services. Discharging today with advised to start low-dose ALLISON inhibito r/low-dose diuretic and follow-up with PCP for continued management and optimization of heart failure/hypertension. Date of admission: 05/21/20 22:14 Discharge date: 05/23/20 Primary care physician: Rivas Abdullahi Consults: 05/21/20 Consult to Physician [CONS] Stat Comment: Consulting Provider: Celio Pak Reason For Exam: Physician to Consult Discharge Meds Discharge Medications Home Medications omeprazole 20 mg capsule,delayed release 20 mg PO BID #180 cap 03/20/17 [Rx Confirmed 05/22/20 Last Taken 05/21/20 10:00] tiotropium bromide 18 mcg capsule with inhalation device 18 mcg INHALATION QDAY #90 puff 08/02/17 [Rx Confirmed 05/22/20 Last Taken 05/21/20 10:00] fenofibrate 160 mg tablet 160 mg PO QDAY #90 tab 01/09/18 [Rx Confirmed 05/22/20 Last Taken 05/21/20 10:00] albuterol sulfate 2 puff INH Q6HP PRN 07/19/19 [History Confirmed 05/22/20 Last Taken 05/20/20 22:00] allopurinol 300 mg PO DAILY 07/19/19 [History Confirmed 05/22/20 Last Taken 05/21/20 10:00] calcium carbonate-vitamin D3 1 tab PO DAILY@1800 07/19/19 [History Confirmed 05/22/20 Last Taken 05/20/20 18:00] cholecalciferol (vitamin D3) 5,000 unit PO DAILY@1800 07/19/19 [History Confirmed 05/22/20 Last Taken 05/20/20 18:00] coenzyme Q10 300 mg PO DAILY 07/19/19 [History Confirmed 05/22/20 Last Taken 05/21/20 10:00] cyanocobalamin (vitamin B-12) 2,500 mcg PO DAILY@1800 07/19/19 [History Confirmed 05/22/20 Last Taken 05/20/20 18:00] gabapentin 300 mg PO QID 07/19/19 [History Confirmed 05/22/20 Last Taken 05/21/20 10:00] magnesium oxide 400 mg PO DAILY@1800 07/19/19 [History Confirmed 05/22/20 Last Taken 05/20/20 18:00] metoprolol succinate 100 mg PO HS 07/19/19 [History Confirmed 05/22/20 Last Taken 05/20/20 22:00] potassium 99 mg PO DAILY@1800 07/19/19 [History Confirmed 05/22/20 Last Taken 05/20/20 18:00] nortriptyline 10 mg capsule 30 mg PO QHS cap 04/08/20 [History Confirmed 05/22/20 Last Taken 05/20/20 22:00] fluticasone propion-salmeterol [Advair Diskus] 2 inh INHALATION BID 05/21/20 [History Confirmed 05/22/20 Last Taken 05/21/20 15:00] rizatriptan 10 mg PO ONCE PRN 05/21/20 [History Confirmed 05/22/20 Last Taken 04/29/20 10:00] tramadol 50 mg PO BIDP PRN 05/22/20 [History Confirmed 05/22/20 Last Taken 05/20/20 18:00] furosemide [Lasix] 20 mg PO QAM #20 tab 05/23/20 [Rx Last Taken Unknown] lisinopril 2.5 mg PO QDAY #30 tab 05/23/20 [Rx Last Taken Unknown] COURSE Hospital Course Hospital course: . Discharge diagnosis: . Time Spent with Patient Time attestation: Total time spent providing and/or coordinating discharge services: EXAM Constitutional Vitals: Temp Pulse Resp BP Pulse Ox 97.5 F 84 16 153/84 93 05/23/20 08:00 05/23/20 08:01 05/23/20 08:01 05/23/20 08:00 05/23/20 08:01 Discharge Data Data Completed and Pending Labs on day of discharge: Labs from last 24 hours 05/23/20 05/23/20 04:47 04:47 WBC 10.3 RBC 4.70 Hgb 14.2 Hct 44.2 MCV 94.0 MCH 30.2 MCHC 32.1 RDW 14.2 Plt Count 334 MPV 10.3 Neut % (Auto) 58.8 Lymph % (Auto) 30.1 [place] % (Auto) 10.6 Eos % (Auto) 0.1 Baso % (Auto) 0.4 Lymph # (Auto) 3.11 [place] # (Auto) 1.09 H Eos # (Auto) 0.01 Baso # (Auto) 0.04 Absolute Neutrophils 6.08 Sodium 135 Potassium 3.9 Chloride 97 Carbon Dioxide 22 Anion Gap 16.0 BUN 20 Creatinine 0.8 GFR Calculation 75 Glucose 114 H Uric Acid 3.5 Calcium 9.0 Phosphorus 2.4 L Magnesium 2.3 Total Bilirubin 0.4 Direct Bilirubin < 0.2 GGT 25 AST 19 ALT 10 Alkaline Phosphatase 52 Lactate Dehydrogenase 270 H Total Protein 6.8 Albumin 4.0 Globulin 2.8 Albumin/Globulin Ratio 1.4 Triglycerides 202 H Discharge Plan Patient/Caregiver Discharge Instructions Activity: ambulate only with your walker Diet: Regular Diet Activity Restrictions/Additional Instructions: Follow-up PCP in 10 days Please cc copy of echocardiogram to PCP office once results available Follow-up orthopedics in 14 days Start lisinopril 2.5, continue daily Lasix 20. PCP to optimize CHF management based on echo findings I recommend primary care physician to check CBC BMP UA as a posthospital follow- up in 2 week. Continue leftankle boot as recommended by orthopedics, continue right shoulder movements as advised by orthopedics Maintain fall precautions Daily weights measurements Take additional dose of diuretics for 3 days if weight gain over 4 pounds over baseline or worsening SOB and call primary care physician if inadequate response to diuretics. Home health PT High protein calorie supplements All meals on chair sitting upright at 90 degrees to prevent aspiration Return to ER if concerning symptoms noted including worsening shortness of breath, fever chills, neurological changes, diarrhea, bleeding Reviewed risk and side effect profile of medications including diuretics and ALLISON inhibitor. Side effect may include mild to severe reaction including cough, allergic reaction rash, diarrhea, dehydration, electrolyte disbalance in rare instances even which can be prevented by close follow-up with PCP and monitoring for side effects Continue diet and activity as advised Discussed importance of medication adherence Please review medication list with patient prior to discharge Please schedule follow-up with PCP/Providers prior to discharge and provide pr intouts Prescriptions: New furosemide [Lasix] 20 mg tablet 20 mg PO QAM Qty: 20 RF: 0 lisinopril 2.5 mg tablet 2.5 mg PO QDAY Qty: 30 RF: 0 Continued omeprazole 20 mg capsule,delayed release(DR/EC) 20 mg PO BID Qty: 180 RF: 3 tiotropium bromide 18 mcg capsule, w/inhalation device 18 mcg INHALATION QDAY Qty: 90 RF: 3 fenofibrate 160 mg tablet 160 mg PO QDAY Qty: 90 RF: 3 albuterol sulfate 1 PUFF inhaler 2 puff INH Q6HP PRN (Reason: Shortness Of Breath) RF: 0 metoprolol succinate 100 MG tablet extended release 24 hr 100 mg PO HS RF: 0 gabapentin 300 MG capsule 300 mg PO QID RF: 0 allopurinol 300 MG tablet 300 mg PO DAILY RF: 0 potassium 99 MG tablet 99 mg PO DAILY@1800 RF: 0 cyanocobalamin (vitamin B-12) 500 MCG tablet 2,500 mcg PO DAILY@1800 RF: 0 cholecalciferol (vitamin D3) 125 MCG capsule 5,000 unit PO DAILY@1800 RF: 0 coenzyme Q10 100 MG capsule 300 mg PO DAILY RF: 0 calcium carbonate-vitamin D3 1 EACH tablet 1 tab PO DAILY@1800 RF: 0 magnesium oxide 400 MG tablet 400 mg PO DAILY@1800 RF: 0 nortriptyline 10 mg capsule 30 mg PO QHS RF: 0 fluticasone propion-salmeterol [Advair Diskus] 250-50 mcg/dose blister with device 2 inh INHALATION BID RF: 0 rizatriptan 10 mg Tablet 10 mg PO ONCE PRN (Reason: Migraine Headache) RF: 0 tramadol 50 mg Tablet 50 mg PO BIDP PRN (Reason: Pain) RF: 0 Follow Up Plan Follow up with: Rivas Abdullahi MD [Primary Care Provider] - Patient Disposition: Home Health Service Rehab Potential: Good I certify that the patient requires SNF services: No Overall status at discharge: patient is progressing back to baseline Discharge Orders: Discharge Order (Routine); Ordered 05/23/20 Ordered By: Celio Pak
--- NOTE | 2020-05-23 08:46 | XRay Report ---
HISTORY: Postreduction of dislocated right shoulder FINDINGS: The humeral head is now normally aligned with the glenoid. There is no evidence of fracture. No abnormal soft tissue calcification is present. IMPRESSION: Good alignment following reduction of previously dislocated shoulder Interpreted and Authenticated by: Hudson Brown 05/23/20
[2020-05-23] MEDS ORDERED: COENZYME Q10 300 MG PO SCH (09:00)
[2020-05-23] MEDS ORDERED: TIOTROPIUM BROMIDE 18 MCG INHALANT INH SCH (09:00)
[2020-05-23] MEDS ORDERED: ALLOPURINOL 300 MG TABLET PO SCH (09:00)
[2020-05-23] MEDS ORDERED: FENOFIBRATE 43 MG CAPSULE PO SCH (09:00)
[2020-05-23] MEDS ORDERED: methylPREDNISolone SOD SUCC 125 MG/2 ML VIAL IV SCH (09:00)
[2020-05-23] MEDS: BUDESONIDE 0.5 MG/2 ML AMPUL.NEB NEB SCH (09:04)
--- NOTE | 2020-05-23 09:49 | XRay Report ---
HISTORY: Follow-up bilateral pulmonary infiltrates FINDINGS: The lungs are now nearly clear with near complete resolution of the severe diffuse alveolar infiltrates seen bilaterally on chest x-ray done on 05/21/20. There is subtle increased lung markings around left hilum. The heart remains mildly enlarged and stable. No pleural effusion is present. Mild dextroscoliotic curvature is present in the midthoracic spine. IMPRESSION: Near complete resolution of previously seen severe bilateral pulmonary infiltrates. The rapid change would favor edema over pneumonia. Interpreted and Authenticated by: Hudson Brown 05/23/20
[2020-05-23] MEDS: LEVOFLOXACIN 750 MG/150 ML BAG IV SCH (09:58)
[2020-05-23] MEDS: FLUTICASONE/SALMETEROL 250/50 INHALER #14 INH SCH (09:58)
[2020-05-23] MEDS: GABAPENTIN 300 MG CAPSULE PO SCH (09:59)
[2020-05-23] MEDS: MULTIVIT,THER IRON,CA,FA & MIN 1 TABLET PO SCH (09:59)
[2020-05-23] MEDS: HEPARIN 5,000 UNIT/ML VIAL SQ SCH (09:59)
[2020-05-23] MEDS: DOCUSATE SODIUM 100 MG CAPSULE PO SCH (10:00)
--- NOTE | 2020-05-25 06:58 | Consultation ---
DATE OF CONSULTATION: 05/22/2020 REASON FOR CONSULTATION: Right shoulder dislocation. She also sustained a fifth metatarsal fracture on the right side in the foot. HISTORY OF PRESENT ILLNESS: She tripped and fell, causing a fracture to the foot, had immediate pain, swelling and deformity and she dislocated her shoulder. This was seen in the Emergency Room, both fracture of the foot as well as dislocated shoulder, but secondary to congestive heart failure and low saturation, she was unable to be sedated and put to sleep. She was then admitted to the hospitalist to stabilize the pulmonary problems. This has now been accomplished and thus, I have been consulted to evaluate for the right shoulder and management of the fifth metatarsal fracture. At this point, I reviewed the x-rays, which shows an anterior dislocation and a foot fracture. PAST MEDICAL HISTORY: She does have a of congestive heart failure. She also has a history of a total knee arthroplasty on the left side where she has done quite well. She has otherwise been getting around fairly well until this event. She has had no chest pain or shortness of breath or loss of consciousness. PHYSICAL EXAMINATION: GENERAL: Very pleasant elderly female who is alert, cooperative, does not appear to be short of breath today. She is 69 years of age. CHEST: Lungs are clear to auscultation bilaterally. CARDIOVASCULAR: Regular rate and rhythm, no murmurs, rubs, or gallops. VITAL SIGNS: She is 5 feet 11 inches and 195 pounds. Vital signs per nurse's note. LOWER EXTREMITIES: She has good capillary refill. There is some swelling bridging around fifth metatarsal fracture on the right side. Her shoulder is internally rotated on the right side. She has pain with any range of motion. IMAGING: X-rays of the right shoulder were evaluated. This shows an anterior dislocation of the right shoulder. This is incompletely entered anteriorly dislocated. The right foot x-rays demonstrate fracture of the fifth metatarsal. This is a Bar[place] fracture. Treatment for both of these, for the shoulder she will be taken back as soon as possible to undergo a closed reduction under IV sedation. She understands the risks and benefits and agrees to proceed. She is now stable pulmonary baxter and having no difficulty breathing. Right foot will be managed with a walking boot. This will be a tall walking boot, weightbearing as tolerated will be permitted. We have ordered for this brace or boot to be placed in the near future. Hopefully, she will be discharged tomorrow. RBH:[email or web address] Job ID: [id number] Doc ID: [id number] Carter Saavedra MD
--- NOTE | 2020-06-01 13:45 | Operative Note ---
DATE OF OPERATION: 05/22/2020 PREOPERATIVE DIAGNOSIS: Right shoulder anterior dislocation. POSTOPERATIVE DIAGNOSIS: Right shoulder anterior dislocation. PROCEDURE: Right shoulder closed reduction under anesthesia in recovery room. SURGEON: Carter Saavedra M.D. GRAFT AND IMPLANTS: None. ANESTHESIA: MAC anesthesia. COMPLICATIONS: None. ESTIMATED BLOOD LOSS: None. TOURNIQUET TIME: None. SPECIMENS REMOVED: None. CONDITION: Stable. DISPOSITION: Always in PACU. DESCRIPTION OF PROCEDURE: The patient was brought to the recovery room. The right shoulder was sterilely prepped. She had been sedated. I did inject some soft tissue with 1% lidocaine for local into the joint and reduced the shoulder. However, it would continually pop back out. We used image and an x-ray during the procedure to confirm the reduction. We confirmed that it would easily reduce and then with external rotation or flexion, it would anteriorly dislocate. Once reduced, we then placed the shoulder into a shoulder immobilizer and the arm to keep and stop external rotation of the hand. Once this was done, we confirmed with image that showed it to be reduced. The patient tolerated this well. There was no complication with the procedure. RBH:[email or web address] Job ID: [id number] Doc ID: [id number] Carter Saavedra MD
== END 2020-05-23 13:00 | disposition home health service (06) | DRG 291 ==
LOC: ED 16:16 → ICU 22:14
PROVIDERS: ADMIT Orthopaedic Surgery; ATTEND Internal Medicine